=== PATIENT | male | born 1945 | race Caucasian/White ===

== ENCOUNTER 2021-11-14 13:42 | Emergency (ER) | payer MEDICARE, MEDICAID ==
[2021-11-14 16:27] VITALS: BP 93/58
[2021-11-14] MEDS ORDERED: CEPH-509 PO (16:35)
[2021-11-14] MEDS ORDERED: ACETAMINOPHEN 325 MG TAB PO ONE (16:45)
== END 2021-11-14 16:59 | disposition home or self-care (01) ==
LOC: ER 13:42 → EDBD 13:42 → ER 16:58
DX: S01.01XA Laceration without foreign body of scalp, initial encounter (principal); S80.212A Abrasion, left knee, initial encounter; E11.9 Type 2 diabetes mellitus without complications; I10 Essential (primary) hypertension; W18.00XA Striking against unspecified object with subsequent fall, initial encounter; Y93.89 Activity, other specified; Y92.89 Other specified places as the place of occurrence of the external cause; Y99.8 Other external cause status
CPT/HCPCS: 12002; 70450